=== PATIENT | female | born 1955 | race Caucasian/White ===

== ENCOUNTER 2016-03-18 13:41 | Inpatient (IN) | payer MEDICARE ==
--- NOTE | 2016-05-09 09:47 | HP ---
DATE OF CLINIC: 05/01/2016 SARWAT MARMOLEJO : 1955 PLANNED PROCEDURE: Right Total Knee Arthroplasty DATE OF PROCEDURE: May 13, 2016 SURGEON: Momo Barnes M.D. PCP: Dr. Yassine Charles HISTORY OF PRESENT ILLNESS Sarwat Marmolejo is a 60 year old female. * Medication list reviewed with patient allergy list reviewed with patient. Mrs. Marmolejo is in today pre-operatively for her upcoming right total knee arthroplasty with Dr. Barnes on 05/13/16. Patient presents in good spirits and is ready to proceed. She denies recent illness, change in health, or prior surgical complications. Pre-op labs are pending. Her recent consult with Dr. Barnes follows: 60-year-old female known to me in the past for right knee issues s/p an arthroscopy in 2011 for a meniscus tear. She had notable degenerative changes at that time. She did well after surgery, but began having increased, atraumatic discomfort over the last year. This has persisted with weight-bearing related pain despite modification of activities and intra-articular corticosteroid injections through her PCP. Her pain is lateral greater than medial. She has pain with loaded flexion such as stairs, squatting and kneeling. Also feels that she has lost stability in the knee. She recently saw Jonh for evaluation on 11/28/15 with new radiographs that are available for my review. Comorbidities include incompletely characterized spondyloarthropathy. She is on Prednisone as well as Leflunomide. This is managed through her PCP, Dr. Charles. She also gives a history of Fibromyalgia. She has had a recent spinal fusion in 2016, specifics are unclear. It sounds like it was likely for a spondylolisthesis. She had, it sounds like, instrumentation and fusion by Dr. Anne with significant improvement in symptoms. No recent illnesses. She is interested in discussion of definitive management options. CURRENT MEDICATION * Activella 0.5-0.1 MG Tablet as directed 5 times a week, 0 days, 0 refills * CeleXA 20 MG Tablet 1 once a day 0 days, 0 refills * Eye Drops 0.05 % Solution four times a day 0 days, 0 refills * Leflunomide 20 MG Tablet once a day 0 days, 0 refills * Multi Vitamin Tablet 1 once a day 0 days, 0 refills * Pepcid AC Maximum Strength 20 MG Tablet once a day 0 days, 0 refills * PredniSONE 5 MG Tablet 1 once a day 0 days, 0 refills * Singulair 10 MG Tablet 1 every bedtime 0 days, 0 refills * Sudafed 30 MG Tablet 1 twice a day 60mg daily, 0 days, 0 refills * TraZODone HCl 50 MG Tablet 1 every bedtime 0 days, 0 refills PAST MEDICAL/SURGICAL HISTORY Reported: Shoulder Arthroscopy Left shoulder. Medical: Stomach problems ulcers 1971, kidney disease kidney stones, a fracture tib/fib, Reported numbness carpal tunnel/feet, Reported tingling carpal tunnel/feet, renal history stones, history of Arthritis, Depression 2011, and Fibromyalgia. Surgical / Procedural: Surgical / procedural history LT tib fib 1979 carpel tunnel Rt chinchilla neuroma 1992 sinus./septum 1997 trigger finger 1998 lap verito multiple foot surgeries, replacement of a hip Right hip replaced 2008, of a knee, Appendectomy, Cholecystectomy, Arthroscopy Right knee scope 01/10/[address] Barnes, Tonsilectomy, and Back Surgery spinal fusion 2015. Diagnoses: Asthma. Fracture tib fib Spondyloarthropathy. Surgical: * Surgery of the pharynx, adenoids, and tonsils 1957 SOCIAL HISTORY Behavioral: Non-smoker never smoked. Smoking status: Never smoker. Work: Occupation Retired RN. ALLERGIES * Augmentin * Latex Reaction: Respitory issues * Methotrexate Reaction: sinus pauses * Septra * Sulfa Drugs Reaction: shock * Tetracyclines Reaction: shock FAMILY HISTORY Kidney disease father, sibling REVIEW OF SYSTEMS Systemic: No fever and no recent weight change. Head: No head symptoms. Cardiovascular: No cardiovascular symptoms. Pulmonary: No pulmonary symptoms. Gastrointestinal: No gastrointestinal symptoms. Psychological: No psychological symptoms. Skin: No skin lesions and no rash. PHYSICAL FINDINGS * Vitals taken 05/01/2016 02:57 pm BP-Sitting R 123/85 mmHg 100 - 120/56 - 80 BP Cuff Size Regular Pulse Rate-Sitting 103 bpm 50 - 100 Temp-Oral 98.8 F 96 - 101 Height 66 in 59 - 68 Weight 214 lbs 96 - 178 Body Mass Index 34.5 kg/m2 Body Surface Area 2.06 m2 Pain Level 8 Pain Level Note walking Ears, Nose, Throat: * ENT: normal. Lungs: * Clear to auscultation. Cardiovascular: Heart Rate and Rhythm: * Abnormal mildly tachycadic but regular rhythm. Patient states she has eaten, otherwise asymptomatic. Abdomen: * Normal. Neurological: Motor: * Dominant Hand = Right Hand. Patient is an obese female in no acute distress, normal appearing mood and affect. On standing she has genu valgum. She ambulates with a stiff-legged gait. Evaluation of the knee shows skin integrity to be well preserved, no wounds, rashes or lesions. She has mild swelling, no gross effusion. Motion is just shy of full extension to 115 degrees of flexion. She has 1+ laxity to valgus stress in 30 degrees of flexion. I am able to correct her to neutral. She is tender lateral greater than medial. Negative drawer, patella tracks well. NT in the proximal tibia. Calf is soft and NT. Distal light touch sensation and motor function are intact and symmetric. Pulses are palpable. Gentle rotation of the hip is non-irritable. Evaluation of the contralateral knee shows non-irritable motion with normal alignment. TESTS Recent radiographs from 11/28/15 are reviewed and show increased genu valgum. There is loss of lateral joint space with periarticular sclerosis and a small subchondral cystic area on the lateral femoral condyle. Medial compartment shows small marginal spurs, otherwise joint space is well maintained. Patellofemoral articulation is well maintained. ASSESSMENT * Localized primary osteoarthritis of the right knee DJD, right knee, with accentuation of valgus deformity. THERAPY * Patient not eligible for fall risk assessment. COUNSELING/EDUCATION * Education and counseling Total Joint Book given PLAN * Unilateral primary osteoarthritis, right knee Physical Therapy: *Other * OTHER OxyCONTIN 10 MG T12A, 1 po q 12 hours-TO BE USED FOR AFTER SURGERY, 10 days, 0 refills TraMADol HCl 50 MG TABS, 1 po q 6 hours prn pain-TO BE USED FOR AFTER SURGERY, 5 days, 0 refills OxyCODONE HCl 5 MG TABS, 1-2 po q 4 hours for break thru pain if needed-TO BE USED FOR AFTER SURGERY, 5 days, 0 refills * Total knee arthroplasty -Right Discussed with patient in detail the limitations, expectations as well as risks and possible complications of surgery including, but not limited to wound problems or infection, neurovascular injury, continued knee pain or dysfunction, including the possibility of prosthetic wear or failure over time that may require additional operative or non-operative treatment. Patient also realizes the perioperative risks including risks associated with anesthesia and would like to proceed. A full PAR conference was held, questions and concerns addressed and informed consent was obtained. Patient will be sent from my office for completion of the preoperative workup[facility]. Patient will use aspirin 325 mg daily for 6 weeks postoperatively for DVT prophylaxis. Patient would like to perform their postop PT at [facility] in [place] with right total knee arthroplasty protocol. CARE TEAM Yassine Charles MD Internal Medicine CC: Yassine Charles MD Internal Medicine [facility] RS/sg
[2016-05-13] MEDS ORDERED: POLYMYXIN B SULFATE 500,000 UNITS, BACITRACIN 25,000 UNITS in SODIUM CHLORIDE 3 L IRRIG... IR PRN (08:30)
[2016-05-13] MEDS ORDERED: FAMOTIDINE 20 MG TABLET PO ONE (08:30)
[2016-05-13] MEDS ORDERED: OXYCODONE HCL 10 MG TAB.SR PO ONE ×2 (08:30→09:22)
[2016-05-13] MEDS ORDERED: TRANEXAMIC ACID 1,000 MG in SODIUM CHLORIDE 0.9% 100 ML IV PRN (08:30)
[2016-05-13] MEDS ORDERED: BUPIVACAINE 0.25% (MDV) 24 ML, MORPHINE SULFATE 8 MG, EPINEPHRINE 0.3 MG in SODIUM CHLO... IF PRN (08:30)
[2016-05-13] MEDS ORDERED: TRAMADOL HCL 50 MG TABLET PO ONE (08:30)
[2016-05-13] MEDS ORDERED: CLONIDINE HCL 0.1 MG/24 HR (7 DAY PATCH) TD SCH (08:30)
[2016-05-13] MEDS ORDERED: GABAPENTIN 600 MG TABLET PO ONE (08:30)
[2016-05-13] MEDS ORDERED: BUPIVACAINE 0.25% (MDV) 20 ML in SODIUM CHLORIDE 0.9% FLUSH 20 ML IF PRN (08:30)
[2016-05-13] MEDS ORDERED: ONDANSETRON 4 MG/2ML 2 ML VIAL IV ONE (08:30)
[2016-05-13] MEDS ORDERED: CEFAZOLIN SODIUM 2 GRAM PREMIX 100 ML IV PRN (08:30)
[2016-05-13] MEDS ORDERED: CELECOXIB 200 MG CAPSULE PO ONE (08:30)
[2016-05-13] MEDS ORDERED: LACTATED RINGERS 1,000 ML ONE (08:47)
[2016-05-13] MEDS ORDERED: IV START KIT ONE (08:48)
[2016-05-13] MEDS ORDERED: TRAMADOL HCL 50 MG TABLET ONE (09:22)
[2016-05-13] MEDS ORDERED: FAMOTIDINE 20 MG TABLET ONE (09:22)
[2016-05-13] MEDS ORDERED: ONDANSETRON 4 MG/2ML 2 ML VIAL ONE (09:22)
[2016-05-13] MEDS ORDERED: CLONIDINE HCL 0.1 MG/24 HR (7 DAY PATCH) TD ONE (09:23)
[2016-05-13] MEDS ORDERED: CELECOXIB 200 MG CAPSULE ONE (09:23)
[2016-05-13] MEDS ORDERED: GABAPENTIN 600 MG TABLET ONE (09:23)
[2016-05-13] MEDS ORDERED: NERVE BLOCK PROCEDURAL TRAY 1 EACH ONE (10:06)
[2016-05-13] MEDS ORDERED: SPINAL PROCEDURAL TRAY 1 EACH ONE (10:06)
[2016-05-13] MEDS ORDERED: ROPIVACAINE 0.5% 30 ML VIAL ONE (10:06)
[2016-05-13] MEDS ORDERED: BUPIVACAINE 0.75% SPINAL AMPUL 2 ML ONE (10:06)
[2016-05-13] MEDS ORDERED: FENTANYL 250 MCG/5 ML AMP ONE (10:07)
[2016-05-13] MEDS ORDERED: DEXAMETHASONE SOD PHOS 4 MG/1 ML VIAL ONE (10:07)
[2016-05-13] MEDS ORDERED: MIDAZOLAM HCL 5 MG/5 ML VIAL ONE ×2 (10:07→11:16)
[2016-05-13] MEDS ORDERED: KETAMINE HCL UD SYRINGE 100 MG/2 ML IV ONE (11:13)
[2016-05-13] MEDS ORDERED: PROPOFOL 40 ML IV ONE (11:13)
[2016-05-13] MEDS ORDERED: PROMETHAZINE HCL 25 MG/ML VIAL IM PRN (12:20)
[2016-05-13] MEDS ORDERED: FENTANYL 100 MCG/2 ML VIAL IV PRN (12:20)
[2016-05-13] MEDS ORDERED: HYDROMORPHONE HCL 1 MG/ML SYRINGE IV PRN (12:20)
[2016-05-13] MEDS ORDERED: LACTATED RINGERS 1,000 ML IV SCH (12:30)
[2016-05-13] MEDS ORDERED: KETOROLAC TROMETHAMINE 30 MG/ML 1 ML VIAL ONE (13:05)
[2016-05-13] MEDS ORDERED: HYDROCORTISONE SOD SUCC 100 MG VIAL ONE (13:09)
[2016-05-13] MEDS ORDERED: PROPOFOL 20 ML IV ONE (13:09)
[2016-05-13] MEDS ORDERED: ON-Q PUMP/ROPIVACAINE 0.2% 450 ML ONE (13:45)
--- NOTE | 2016-05-13 14:06 | PCMBPN ---
Brief Post Op Note: Date of Procedure: 05/13/16 Preoperative Diagnosis: DJD right knee Postoperative Diagnosis: same Procedure: right TKA Surgeon: Momo Barnes MD Assist: Mac LEMON) Anesthesia:spinal/add block (Ja) Findings: inflammatory changes, lateral wear Condition: stable to PAR Complications: none IV Fluids: 1800 mLs of LR Urine Output: 200 mLs Estimated Blood Loss: 200 mLs Tourniquet Time: ~50 minutes Specimens: permanent histopath synovium specimen Implants: Legion Drains: none
[2016-05-13] MEDS: ON-Q PUMP/ROPIVACAINE 0.2% 450 ML in PREMIX BAG 1 EACH NB PRN (14:46)
[2016-05-13] MEDS ORDERED: HYDROXYZINE PAMOATE 25 MG CAPSULE PO PRN (14:53)
[2016-05-13] MEDS ORDERED: TRAZODONE HCL 50 MG TABLET PO PRN (14:53)
[2016-05-13] MEDS ORDERED: ON-Q PUMP/ROPIVACAINE 0.2% 450 ML in PREMIX BAG 1 EACH NB PRN (14:53)
[2016-05-13] MEDS ORDERED: ONDANSETRON 4 MG/2ML 2 ML VIAL IV PRN (14:53)
[2016-05-13] MEDS ORDERED: HYDROMORPHONE HCL 0.5 MG/0.5 ML SYRINGE IV PRN (14:53)
--- NOTE | 2016-05-13 15:27 | RAD ---
EXAMINATION : KNEE RIGHT 1 OR 2 VIEWS HISTORY: Postop right total knee arthroplasty. COMPARISONS: Presurgical study dated 11/28/2015. FINDINGS: Patient status post right total knee arthroplasty. The femoral and tibial components appear well seated and anatomically aligned. No adjacent fracture is identified. Postoperative soft tissue changes are noted. IMPRESSION: Satisfactory immediate postoperative appearance right total knee arthroplasty.
[2016-05-13 15:53] VITALS: BMI 34.1
[2016-05-13] MEDS ORDERED: PUMP TUBING ONE (15:59)
[2016-05-13] MEDS: D5 1/2NS with 20 mEq KCL 1,000 ML IV SCH ×2 (16:53→23:01)
[2016-05-13] MEDS: CALCIUM CARBONATE 500 MG TAB.CHEW PO PRN (19:06)
[2016-05-13] MEDS: CEFAZOLIN SODIUM 1 GRAM PREMIX 1 G in Premix (D5W) 50 ml 1 EACH IV SCH (19:06)
[2016-05-13] MEDS: OXYCODONE HCL 5 MG TABLET PO PRN ×2 (19:17→23:47)
[2016-05-13] MEDS: KETOROLAC TROMETHAMINE 30 MG/ML 1 ML VIAL IV PRN (19:18)
[2016-05-13] MEDS ORDERED: TRAMADOL HCL 50 MG TABLET PO PRN (20:30)
[2016-05-13] MEDS ORDERED: MONTELUKAST SODIUM 10 MG TABLET PO SCH (21:00)
[2016-05-13] MEDS: OXYCODONE HCL 10 MG TAB.SR PO SCH (22:49)
[2016-05-13] MEDS: DOCUSATE SODIUM 100 MG CAPSULE PO SCH (22:52)
[2016-05-13] MEDS: FLUTICASONE PROPIONATE 50 MCG/SPRAY 120 SPRAYS/16 G INH NS SCH (22:53)
[2016-05-13] MEDS: ACETAMINOPHEN 500 MG TABLET PO SCH (22:53)
[2016-05-13] MEDS: ASCORBIC ACID 500 MG TABLET PO SCH (22:59)
[2016-05-14] MEDS: OXYCODONE HCL 5 MG TABLET PO PRN ×4 (03:44→15:26)
[2016-05-14] MEDS: CEFAZOLIN SODIUM 1 GRAM PREMIX 1 G in Premix (D5W) 50 ml 1 EACH IV SCH (03:47)
[2016-05-14] MEDS: ACETAMINOPHEN 500 MG TABLET PO SCH ×4 (03:48→15:31)
[2016-05-14] MEDS: ON-Q PUMP/ROPIVACAINE 0.2% 450 ML in PREMIX BAG 1 EACH NB PRN (05:26)
[2016-05-14 06:19] LABS: HEMATOCRIT 38.1 % (37.0-47.0); HEMOGLOBIN 11.8 gm/l (12.0-16.0); MEAN CELL VOLUME 90.7 fl (81.0-99.0); MEAN CORPUSCULAR HEMOGLOBIN 28.1 pg (27.0-31.0); RED CELL DISTRIBUTION WIDTH 13.9 % (11.5-14.5)
[2016-05-14 06:26] LABS: CALCIUM 9.2 mg/dL (8.6-10.3)
[2016-05-14] MEDS: KETOROLAC TROMETHAMINE 30 MG/ML 1 ML VIAL IV PRN (07:38)
[2016-05-14] MEDS: CALCIUM CARBONATE 500 MG TAB.CHEW PO PRN ×2 (07:38→12:02)
[2016-05-14] MEDS: D5 1/2NS with 20 mEq KCL 1,000 ML IV SCH ×2 (07:55→16:09)
[2016-05-14] MEDS ORDERED: REMOVE PATCH 1 EACH UNIT TD SCH (08:30)
[2016-05-14] MEDS: ASCORBIC ACID 500 MG TABLET PO SCH (08:56)
[2016-05-14] MEDS: DOCUSATE SODIUM 100 MG CAPSULE PO SCH (08:56)
[2016-05-14] MEDS: OXYCODONE HCL 10 MG TAB.SR PO SCH (08:56)
[2016-05-14] MEDS ORDERED: PREDNISONE 5 MG TABLET PO SCH (09:00)
[2016-05-14] MEDS ORDERED: LEFLUNOMIDE 20 MG PO SCH (09:00)
[2016-05-14] MEDS ORDERED: MULTIVITAMINS 1 TAB TABLET PO SCH (09:00)
[2016-05-14] MEDS ORDERED: GUAIFENESIN PO SCH (09:00)
[2016-05-14] MEDS ORDERED: FAMOTIDINE 20 MG TABLET PO SCH (09:00)
[2016-05-14] MEDS ORDERED: ASPIRIN (ENTERIC COATED) 325 MG TABLET.EC PO SCH (09:00)
[2016-05-14] MEDS ORDERED: [UNRECOGNIZED DRUG - OTHER] PO SCH (09:00)
[2016-05-14] MEDS ORDERED: DEXTROMETHORPHAN PO SCH (09:00)
[2016-05-14] MEDS: FLUTICASONE PROPIONATE 50 MCG/SPRAY 120 SPRAYS/16 G INH NS SCH (09:05)
[2016-05-14 12:52] VITALS: BP 134/77
--- NOTE | 2016-05-14 13:38 | PDOC43 ---
- Subjective Findings: Pt seen this afternoon and is doing well. She denies significant pain and has done well with PT. She states she would like to go home today. Subjective: Reports Flatus, Reports Pain Tolerable, Denies Chest Pain, Denies Shortness of Breath, Denies Nausea, Denies Vomiting, Denies Fever - Objective Vital Signs Temperature 98.0 F 05/14/16 12:51 Pulse Rate 82 05/14/16 12:51 Respiratory Rate 16 05/14/16 12:51 Blood Pressure 134/77 05/14/16 12:51 O2 Saturation by Pulse Oximetry 100 05/14/16 12:51 Oxygen Delivery Method Room Air Oxygen Flow Rate 0 Laboratory 05/14/16 05:30 05/14/16 05:30 05/14/16 05:30 MCHC 31.0 L Active Medication Orders Category Date Time Status Acetaminophen [Tylenol] Med 05/13/16 21:00 Active 1,000 mg PO Q6H Ascorbic Acid [Vitamin C] Med 05/13/16 21:00 Active 500 mg PO BID Aspirin (Enteric Coated) [Ecotrin] Med 05/14/16 09:00 Active 325 mg PO DAILY Bisacodyl [Dulcolax] Med 05/16/16 13:58 Active 10 mg WI DAILY PRN Calcium Carbonate [Tums] Med 05/13/16 14:53 Active 1,000 - 2,000 mg PO Q2H PRN D5 1/2NS with 20 mEq KCL [D51/2NS with 20 mEq KCL] 1, Med 05/13/16 14:53 Active 000 ml IV 125 mls/hr Docusate Sodium [Colace] Med 05/13/16 21:00 Active 100 mg PO BID Famotidine [Pepcid] Med 05/14/16 09:00 Active 20 mg PO DAILY Fluticasone Prop 50 Mcg Nasal [Flonase Nasal [place]] Med 05/13/16 21:00 Active 1 sprays NS BID Hydromorphone HCl [Dilaudid] Med 05/13/16 14:53 Active 0.5 mg IV Q1H PRN Hydroxyzine Pamoate [Vistaril] Med 05/13/16 14:53 Active 25 - 50 mg PO Q4H PRN Ketorolac Tromethamine [Toradol] Med 05/13/16 14:53 Active 30 mg IV Q6H PRN Leflunomide [Arava 20 mg tablet] Med 05/14/16 09:00 Pending 20 mg PO DAILY Magnesium Hydroxide [Milk of Magnesia] Med 05/14/16 13:58 Active 30 ml PO DAILY PRN Montelukast Sodium [Singulair] Med 05/13/16 21:00 Active 20 mg PO BEDTIME Multivitamins [One-A-Day] Med 05/14/16 09:00 Active 1 tab PO DAILY On-Q Pump/Ropivacaine 0.2% 450 ml Med 05/13/16 12:20 Active Premix Bag [Premix Fluid] 1 each NB Q50H On-Q Pump/Ropivacaine 0.2% 450 ml Med 05/13/16 14:53 Active Premix Bag [Premix Fluid] 1 each NB Q50H Ondansetron 4 mg/2ml Vial [Zofran] Med 05/13/16 14:53 Active 4 - 6 mg IV Q6H PRN Oxycodone HCl [Roxicodone] Med 05/13/16 14:53 Active 5 - 10 mg PO Q4H PRN Oxycodone Sr [Oxycontin] Med 05/13/16 21:00 Active 10 mg PO Q12HR Prednisone Med 05/14/16 09:00 Active 5 mg PO QAM Remove Patch Med 05/14/16 13:58 Once 1 each TD X1 ONE Sodium Chloride 0.9% Flush [Normal Saline 10ml Flush] Med 05/13/16 14:53 Active 10 - 50 ml IV PRN PRN Sodium Chloride 0.9% Flush [Normal Saline 10ml Flush] Med 05/13/16 17:00 Active 10 ml IV Q8HR Tramadol HCl [Ultram] Med 05/13/16 20:30 Active 50 mg PO Q6H PRN Trazodone HCl [Desyrel] Med 05/13/16 14:53 Active 50 mg PO BEDTIME PRN Intake and Output 05/12/16 05/13/16 05/14/16 23:59 23:59 23:59 Intake Total 2200 1701 Output Total 1750 3750 Balance 450 -2049 General: Afebrile HEENT: Atraumatic Lungs: Normal Air Movement Abdomen: Non-Distended Skin: Normal Color Neurological: Alert, Oriented x 4 Psych/Mental Status: Normal Affect - Right Lower Extremity Incision: Other (There is some scant serous drainage around the nerve cath site. This was reinforced with new bandage.) Motor: Extensor Hallucis Longus: 5/5, Tibialis Anterior: 5/5, Gastrocnemius: 5/5 , Peroneals: 5/5, Quadriceps: 3/5 Gross Sensation to Light Touch: Present: Deep Peroneal Nerve, Superficial Peroneal Nerve Capillary Refill: < 3 Seconds Motion: Calf soft NT Knee rom is excellent 0-90 Ind SLR - Problems (1) Status post right knee replacement Status: AcuteAssessment/Plan: Pod#1 1. Physical Therapy: Mobilize with PT/OT 2. Pain Control: Good per protocol and nerve cath 3. DVT Prophylaxis: ASA, foot pumps and mobility 4. Disposition: Doing very well 5. Medical Issues: None that are concerning at this time. May D/C this evening if she meets criteria.
[2016-05-14] MEDS ORDERED: REMOVE PATCH 1 EACH UNIT TD ONE (13:58)
[2016-05-14] MEDS ORDERED: MAGNESIUM HYDROXIDE 30 ML UDCUP PO PRN (13:58)
[2016-05-14] MEDS ORDERED: FLUTICASONE PROPIONATE 50 MCG/SPRAY 120 SPRAYS/16 G INH NS SCH (14:15)
--- NOTE | 2016-05-15 16:19 | OP ---
LEXI CURRY [id number] : 1955 DATE OF SURGERY: May 13, 2016 PREOPERATIVE DIAGNOSIS: Degenerative joint disease right knee POSTOPERATIVE DIAGNOSIS: Same PROCEDURE: Right Total Knee Arthroplasty COMPONENTS: Legion size 5 posterior stabilized Oxinium cemented femoral component, size 4 cemented tibial base plate, 12mm high flexion cross-linked polyethylene posterior stabilized articular insert, 35mm resurfacing patella. SURGEON: Momo Barnes M.D. POWERBUILDER: Mac LEMON) ANESTHESIA: Spinal per adductor nerve block per Ja ESTIMATED BLOOD LOSS: 200 cc IV FLUID REPLACEMENT: per anesthesia, 1.8 liters crystalloid URINE OUTPUT: 200 cc DRAINS: None TOURNIQUET TIME: Approximately 50 minutes COMPLICATIONS: None HISTORY: Briefly, patient is a 60-year-old female with clinical and radiographic evidence of advanced degenerative disease with an inflammatory component of their right knee. They have failed traditional non-operative management and desire elective total knee arthroplasty. For additional details, please refer to the previously dictated Preoperative History and Physical Examination. A PAR conference was held, questions and concerns were addressed, and informed consent was obtained. FINDINGS: Significant diffuse synovitis with thickened hypertrophic synovium, particularly posteriorly. There was a large popliteal cyst that was decompressed. Significant lateral wear particularly over the anterior and mid proximal tibia and posterolateral femur. PROCEDURE: The patient was taken to the operating room after the placement of a spinal anesthetic and femoral nerve block. They were placed supine on the operating room table, a tourniquet was applied to the proximal thigh and the right lower extremity was prepped and draped out in the usual sterile fashion. Preoperative IV antibiotics were given empirically. Intraoperative DVT prophylaxis consisted of contralateral foot pumps. Personal filtration suits were used as was a closed room environment. The leg was then elevated and the tourniquet inflated after gravity exsanguination. This was dropped after exposure and not used again until cementation. Tranexamic acid was infiltrated over 10 minutes prior to incision, 1 gram dose per protocol. A similar 2nd dose was given at initiation of closure. 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 With the knee flexed, an anteromedial incision was made from the level of the tibial tubercle to two centimeters proximal to the superior pole of the patella. A medial arthrotomy was performed with a mini-mid vastus approach. A medial subperiosteal proximal tibial release was performed and a portion of the anterior fat pad was excised to improve visualization. We then debrided the synovium using cautery, including a large portion of the suprapatellar pouch, which was sent for histopathologic analysis. The anterior and posterior cruciate ligaments were excised as were the remaining portions of the anterior horns of the medial and lateral menisci. Minimally invasive instrumentation and philosophy were used throughout the procedure in an attempt to decrease the extent of soft tissue disruption/damage. The intramedullary femoral drill was passed followed by the intramedullary alignment vijay with the 5 degree valgus bushing. We made our provisional anterior cut and then our distal femoral cut flush with the sulcus. We confirmed the size of the femur and placed the appropriate 4-in-1 cutting block making our anterior and posterior condylar cuts followed by the chamfer cuts. Residual marginal osteophytes were removed. Attention was then directed to the tibia which was retracted anteriorly. There was minimal lateral meniscus. The remaining thickened medial tissue and rudimentary lateral meniscus tissue was excised. The extramedullary tibial alignment jig was placed and the proximal tibial cut made as per our preoperative plan perpendicular to the long axis of the tibia. The tibia was sized and we passed the 11 mm. punch. We then balanced the flexion and extension gaps by performing a limited posterior capsular release. We established adequate hemostasis. We then completed the femoral preparation by reaming and chiseling the notch. Femoral and tibial trial components were placed. We were able to obtain full extension with nice roll back and good coronal plane alignment and stability. The patella tracked well and was prepared using the Keena patellar reaming system removing 9 mm. of bone. Osteophytes were removed prior to this with a rongeur and we performed a circumferential limited denervation using cautery. This was sized accordingly and punch holes were drilled. We marked our tibial rotation and removed the trial components after passing the cruciform tibial punch. The knee was then re-exsanguinated and the tourniquet inflated after establishing adequate hemostasis. Double antibiotic pulsatile lavage was used to irrigate the knee and clean the cancellous alondra interstices which were then carefully dried. The first periarticular injection was given, per protocol, in the posterior capsule, posteromedial knee and synovium. Two doses of high viscosity, antibiotic impregnated, polymethylmethacrylate were used to cement the femoral, tibial, and then patellar components. The knee was held in extension while the cement cured. All residual methacrylate was meticulously removed. Attention was then directed towards closure. We irrigated and the retinaculum was closed with a running #2 absorbable StratoFix suture. The 2nd periarticular injection was given, per protocol, anteromedially of the pes anserine, the extensor mechanism and IT band. The repair was checked in maximum flexion. We then lightly irrigated the subcutaneous tissue and closed with interrupted 2-0 and 3-0 Vicryl. The skin was then re-approximated with subcuticular 4-0 Monocryl and Dermabond Prineo. A sterile compression dressing was applied. The patient was then transferred to their hospital bed and sent to the post anesthesia recovery room in stable condition. They tolerated the procedure well. Sponge, instrument, and needle count were correct. CC: Yassine Charles MD [facility]
--- NOTE | 2016-05-16 11:18 | SURGPATH ---
[facility] [address] [place] [id number] Patient Name: LEXI CURRY MR#: [id number] : 1955 Gender: F Specimen #: [id number] Collected: 05/13/2016 Received: 05/15/2016 Reported: 05/16/2016 Submitting Phys: CARMEN GONZALEZ Copy To Phys: [facility] HAILEY LEDESMA Clinical History / Pre-Operative Diagnosis: INFLAMMATORY ARTHRITIS Specimen Source / Surgical Procedure Performed: SYNOVIUM, RIGHT KNEE Interpretation: RIGHT KNEE SYNOVIUM, BIOPSY: - REACTIVE SYNOVIUM Electronically Signed Out Emerson Mann M.D. Gross Description: The specimen is received in a formalin filled container labeled with the patient's name and "synovium, right knee". An irregular portion of rubbery, yellow-rodriguez, fibroconnective and fatty soft tissue is 5.0 x 4.0 x 1.5 cm. Four marketing development representative sections are submitted in cassettes A and B. Gigi Campos. Microscopic Description: Sections reveal multiple portions of synovium with reactive stromal changes and scanty chronic inflammation. 1: [id number] [id number]
[2016-05-16] MEDS ORDERED: BISACODYL 10 MG SUP PR PRN (13:58)
--- NOTE | 2016-05-16 15:55 | DS ---
Sarwat CURRY [id number] : 1955 DATE OF ADMISSION: May 13, 2016 DATE OF DISCHARGE: May 14, 2016 DISCHARGE DIAGNOSES: Right knee osteoarthritis. HOSPITAL PROCEDURES: Right total knee arthroplasty. SURGEON: Momo Barnes M.D. BRIEF HISTORY: Patient is a 60-year-old female with clinical and radiographic evidence of advanced DJD of their right knee. For the full history please see the chart note. BRIEF HOSPITAL COURSE: Patient was admitted on May 06, 2016. Dr. Momo Barnes performed a right total knee arthroplasty. They were moved to the recovery room in stable condition. They were given 4 doses of antibiotic for empiric coverage. DVT prophylaxis consisted of enteric-coated aspirin, BRAYAN hose and AV foot pumps. PT was instituted postop day, 0 with right total knee arthroplasty protocol, weightbearing as tolerated. Their incision site remained benign, their vital signs remained stable and they remained neurally and vascularly intact through the duration of the stay. They were discharged home on postop day, 1 to continue their outpatient PT at [facility] in [place] with right total knee arthroplasty protocol, weightbearing as tolerated. DISCHARGE INSTRUCTIONS: 1. Keep the wound site clean. May shower with Aquacel dressing intact. Call office with any questions or concerns and f/u for your dressing change as scheduled 1 week postop. 2. Continue the use of BRAYAN hose bilaterally. 3. Cooling unit 3-4 times daily for 30 minutes duration. 4. Outpatient PT at [facility] in [place] for right total knee arthroplasty protocol, weightbearing as tolerated. MEDICATIONS: 1. Patient is to resume normal preop medications. 2. Anti-coagulation will be with enteric-coated aspirin 325 mg once per day for six weeks. 3. Pain management will be with OxyContin, 10mg every 12 hours x 10 days, Oxycodone, 5mg 1-2 every 4 hours prn for breakthrough pain, and Tramadol, 50mg every 6 hours prn pain. 4. Patient was also advised on utilization of a multi-vitamin with mineral daily as well as Vitamin C, 500mg daily for 1 month. 5. Patient encouraged to take an iron supplement in the form of ferrous sulfate, 325mg daily for 4 weeks. 6. Colace, 100mg, b.i.d. until regular bowel movement. FOLLOW-UP: Please return to the clinic as scheduled for your first scheduled postop check. Prior to that point in time please call with any questions or concerns. Job [id number] CC: Artur Charles M.D., [place]
== END 2016-05-14 17:45 | disposition home or self-care (01) | DRG 470 ==
LOC: OR 05-13 08:20 → MS 05-13 15:43
PROVIDERS: ADMIT Orthopaedic Surgery; ATTEND Orthopaedic Surgery
PROC: 0SRC0J9 Replacement of Right Knee Joint with Synthetic Substitute, Cemented, Open Approach (ICD-10-PCS; principal; 2016-05-13)
PROC: 0SBC0ZX Excision of Right Knee Joint, Open Approach, Diagnostic (ICD-10-PCS; 2016-05-13)
DX: M17.11 Unilateral primary osteoarthritis, right knee (principal); M21.061 Valgus deformity, not elsewhere classified, right knee; M67.361 Transient synovitis, right knee; M79.7 Fibromyalgia; M47.9 Spondylosis, unspecified; E66.9 Obesity, unspecified; Z68.34 Body mass index [BMI] 34.0-34.9, adult; Z98.1 Arthrodesis status; Z88.8 Allergy status to other drugs, medicaments and biological substances; Z88.2 Allergy status to sulfonamides; Z88.1 Allergy status to other antibiotic agents; Z91.040 Latex allergy status